=== PATIENT | male | born 1955 | race Hispanic/Latino ===

== ENCOUNTER 2019-08-04 07:00 | Day surgery (SDC) | payer OTHER ==
[2019-08-02 16:00] VITALS: BP 110/55
[2019-08-02 16:28] LABS: POTASSIUM 4.1 mmol/L (3.5-5.1)
[~2019-08-04] VITALS: Ht 176.5 cm; Wt 95.5 kg
[2019-08-04] VITALS (18 sets, daily range): BP systolic 107–139; BP diastolic 53–87
[2019-08-04] MEDS: CEFAZOLIN SODIUM 1 GM VIAL IVP SCH ×2 (06:00→09:30)
[~2019-08-04 07:00] MED LIST: DAPA10TA PO; LISI-617 PO; METF-444 PO; MIRA25TA PO; PRAV80TA21 PO; TAMS-1 PO
[2019-08-04] MEDS ORDERED: SODIUM CHLORIDE 0.9% 1000ML 1,000 ML IV ONE (08:43)
[2019-08-04] MEDS ORDERED: GLYCOPYRROLATE 1 MG/5 ML SYRINGE ONE (09:09)
[2019-08-04] MEDS ORDERED: NEOSTIGMINE 5MG/5ML SYR IV ONE (09:09)
[2019-08-04] MEDS ORDERED: FENTANYL CITRATE PF 50 MCG/1 ML 2ML VIAL ONE ×2 (09:09→09:44)
[2019-08-04] MEDS ORDERED: LIDOCAINE PF 2% 5ML ABBOJECT ONE ×2 (09:09→09:10)
[2019-08-04] MEDS ORDERED: SUCCINYLCHOLINE 200MG/10ML SYR ONE ×2 (09:09→09:10)
[2019-08-04] MEDS ORDERED: DEXAMETHASONE SOD PHOSPHATE 10MG/ML 1ML VIAL ONE (09:09)
[2019-08-04] MEDS ORDERED: ONDANSETRON HCL 4 MG/2 ML VIAL ONE (09:09)
[2019-08-04] MEDS ORDERED: ROCURONIUM 10MG/1ML SYR 10 MG/ML ML ONE (09:09)
[2019-08-04] MEDS ORDERED: PROPOFOL 10 MG/ML 20ML VIAL IV ONE (09:09)
[2019-08-04] MEDS ORDERED: BACITRACIN 28.4 GM OINT TP ONE (09:21)
[2019-08-04] MEDS ORDERED: BUPIVACAINE/PF 0.25% 50ML VIAL IJ ONE (09:22)
[2019-08-04] MEDS ORDERED: LIDOCAINE HCL 1% MDV 50ML VIAL ONE (09:22)
[2019-08-04] MEDS ORDERED: MEPERIDINE-PF 25 MG/ML SYG ONE (10:20)
[2019-08-04] MEDS ORDERED: MEPERIDINE-PF 25 MG/ML SYG IV SCH (10:45)
--- NOTE | 2019-08-04 11:31 | NUR ---
PATIENT ARRIVED PATIENT ARRIVED TO DAY PATIENT VIA BED BY CARYN HIDALGO. PATIENT [id number], RESPIRATIONS UNLABORED, VITAL SIGNS STABLE. PATIENT DENIES ANY PAIN AT THIS TIME. DRESSING TO PENIS IS DRY AND INTACT, NO BLEEDING NOTED. PATIENT INSTRUCTED TO MONITOR FOR BLEEDING/DRAINAGE TO SITE. PATIENT VERBALIZED UNDERSTANDING. SIDERAILS UP X2, BED IN LOWEST POSITION, CALL HUNTER IN REACH.
--- NOTE | 2019-08-04 12:20 | NUR ---
DISCHARGE INSTRUCTIONS DISCHARGE INSTRUCTIONS PROVIDED TO PATIENT AND PATIENT'S SPOUSE. FOLLOW UP APPOINTMENTS PROVIDED AND PRESCRIPTIONS PROVIDED. INSTRUCTIONS ON INCISION CARE WERE GIVEN TO PATIENT AND SPOUSE, BOTH VERBALIZED UNDERSTANDING. ALL QUESTIONS.CONCERNS ADDRESSED AND HANDOUTS PROVIDED.
--- NOTE | 2019-08-04 12:26 | NUR ---
DISCHARGED PATIENT DISCHARGED FROM FACILITY VIA WHEELCHAIR ACCOMPANIED BY SPOUSE AND ASSISTED INTO PRIVATE VEHICLE BY CARYN ANTONIO.
== END 2019-08-04 12:26 ==
LOC: DAH 07:00
PROVIDERS: ATTEND Urology
DX: N47.1 Phimosis (principal); E11.9 Type 2 diabetes mellitus without complications; I10 Essential (primary) hypertension; F41.9 Anxiety disorder, unspecified; R30.0 Dysuria; J44.9 Chronic obstructive pulmonary disease, unspecified; F17.200 Nicotine dependence, unspecified, uncomplicated; R35.1 Nocturia; Z79.84 Long term (current) use of oral hypoglycemic drugs; Z79.899 Other long term (current) drug therapy
CPT/HCPCS: 36415; 54161; 80048; 82948 ×2; 88304; A4215; A4221; A4222; A4223; A4510; A4600; A4663; A4930; J0330 ×2; J0690; J1100; J2001 ×2; J2175; J2405; J2704; J2710; J3010 ×2; J3490 ×3; J7030

== ENCOUNTER 2019-08-05 06:03 | Emergency (ER) | payer OTHER ==
[2019-08-05 06:29] LABS: APPEARANCE,URINE CLOUDY (CLEAR); BILIRUBIN,URINE NEGATIVE (NEGATIVE); COLOR,URINE RED (YELLOW); GLUCOSE, URINE (UA) >=1000 mg/dL (NEGATIVE); KETONES,URINE NEGATIVE (NEGATIVE); LEUKOCYTE ESTERASE ,URINE NEGATIVE (NEGATIVE); NITRATE,URINE NEGATIVE (NEGATIVE); OCCULT BLOOD,URINE LARGE (NEGATIVE); PROTEIN,URINE NEGATIVE (NEGATIVE); UROBILINOGEN,URINE 0.2 mg/dL (0.2-1.0)
[2019-08-05 07:25] LABS: BACTERIA,URINE None Seen /HPF (None Seen); RBC,URINE Full Field /HPF (0-1); SQUAMOUS EPITHELIAL CELL,UR 0-2 /HPF (0-2); WBC,URINE None Seen /HPF (0-1)
[2019-08-05] MEDS ORDERED: PHENAZOPYRIDINE HCL 200 MG TABLET ONE (07:34)
== END 2019-08-05 07:52 | disposition home or self-care (01) ==
LOC: EDH 06:03
DX: R33.9 Retention of urine, unspecified (principal); I10 Essential (primary) hypertension; E11.9 Type 2 diabetes mellitus without complications
CPT/HCPCS: 51702; 81001

== ENCOUNTER 2019-08-12 00:31 | Emergency (ER) | payer OTHER ==
[2019-08-12 00:49] LABS: BASOPHILS % (AUTO) 0.3 % (0.0-5.0); EOSINOPHILS % (AUTO) 0.1 % (0.0-8.0); HEMATOCRIT 43.7 % (42-54); LYMPHOCYTES % (AUTO) 5.1 % (21.0-51.0); MEAN CORPUSCULAR HEMOGLOBIN 30.9 pg (27.0-33.0); MEAN CORPUSCULAR HGB CONC 34.5 g/dL (32.0-36.0); MEAN CORPUSCULAR VOLUME 89.6 fL (79-99); MONOCYTES % (AUTO) 6.6 % (3.0-13.0); NEUTROPHILS % (AUTO) 87.9 % (40.0-77.0); NUCLEATED RED BLOOD CELLS 0.1 % (0.0-0.19); PLATELET COUNT (AUTO) 149 K/uL (130-400); RED BLOOD CELL COUNT(AUTO) 4.88 MIL/uL (4.50-6.20); WHITE BLOOD COUNT (AUTO) 18.8 K/uL (4.8-10.8)
[2019-08-12 00:49] LABS: APPEARANCE,URINE Clear (CLEAR); BILIRUBIN,URINE Negative (NEGATIVE); COLOR,URINE Dark Yellow (YELLOW); GLUCOSE, URINE (UA) >=1000 mg/dL (NEGATIVE); KETONES,URINE Negative (NEGATIVE); LEUKOCYTE ESTERASE ,URINE Trace (NEGATIVE); NITRATE,URINE Positive (NEGATIVE); OCCULT BLOOD,URINE Nonhemolyzed Trace (NEGATIVE); PROTEIN,URINE Negative (NEGATIVE)
[2019-08-12 01:01] LABS: CREATININE 0.9 mg/dL (0.5-1.5); POTASSIUM 3.7 mmol/L (3.5-5.1)
[2019-08-12 01:06] LABS: ALBUMIN 3.9 g/dL (3.5-5.0); BILIRUBIN,TOTAL 0.9 mg/dL (0.2-1.0); TOTAL PROTEIN, SERUM 7.9 g/dL (6.0-8.3)
[2019-08-12 01:06] LABS: BACTERIA,URINE Rare /HPF (None Seen); RBC,URINE 0-1 /HPF (0-1); SQUAMOUS EPITHELIAL CELL,UR 0-2 /HPF (0-2)
== END 2019-08-12 01:38 | disposition home or self-care (01) ==
LOC: EDH 00:31
DX: R33.9 Retention of urine, unspecified (principal); E11.9 Type 2 diabetes mellitus without complications; I10 Essential (primary) hypertension; Z72.0 Tobacco use
CPT/HCPCS: 36415; 51702; 80053; 81001; 85025

== ENCOUNTER 2019-08-13 09:09 | Emergency (ER) | payer OTHER | END 2019-08-13 09:43 | disposition home or self-care (01) | LOC: EDH 09:09 | DX: Z46.6 Encounter for fitting and adjustment of urinary device (principal); E11.9 Type 2 diabetes mellitus without complications; I10 Essential (primary) hypertension | CPT/HCPCS: 99281 ==

== ENCOUNTER 2019-08-15 06:54 | Emergency (ER) | payer OTHER ==
[2019-08-15] MEDS ORDERED: ACETAMINOPHEN 325 MG TAB ONE (07:56)
== END 2019-08-15 08:00 | disposition home or self-care (01) ==
LOC: EDH 06:54
DX: R33.9 Retention of urine, unspecified (principal); E11.9 Type 2 diabetes mellitus without complications; I10 Essential (primary) hypertension
CPT/HCPCS: 51702